=== PATIENT | male | born 1980 | race Caucasian/White ===

== ENCOUNTER 2023-06-21 17:57 | Emergency (ER) | payer MEDICAID, SELFPAY ==
[2023-06-21 18:25] VITALS: BP 137/99; BP 150/70; PULSE 110; PULSE 92; RESP 14; TEMP 37.1; O2SAT 97; O2SAT 99; BMI 22.0
[2023-06-21 18:31] VITALS: PULSE 87; RESP 16; O2SAT 97
[2023-06-21 18:39] LABS: Appearance Urine Clear; Color Urine Yellow; Glucose Urine UA Negative (Negative); Leukocyte Esterase Urine Negative (Negative); Nitrite Urine Negative (Negative); Urine Blood Negative (Negative); Urine Ketones 40 mg/dL (Negative); Urine Protein Negative (Neg-Trace)
[2023-06-21 18:46] LABS: Amphetamine Screen Urine Not Detected (Not Detect); Barbiturates, Urine Not Detected (Not Detect); Benzodiazepines Screen Urine Not Detected (Not Detect); Cannabinoid Screen Urine Not Detected (Not Detect); Cocaine Screen Urine POSITIVE (Not Detect); Fentanyl, urine Not Detected (Not Detect); Opiate Screen Urine Not Detected (Not Detect); Phencyclidine Screen Urine Not Detected (Not Detect)
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
== END 2023-06-21 19:40 | disposition home or self-care (01) ==
PROVIDERS: Emergency Provider Emergency Medicine Emergency Medical Services; PCP Internal Medicine
DX: F41.1 Generalized anxiety disorder (principal); F41.0 Panic disorder [episodic paroxysmal anxiety]; Z79.899 Other long term (current) drug therapy
CPT/HCPCS: 80307; 81003; 99284